=== PATIENT | female | born 2000 ===

== ENCOUNTER 2020-07-08 10:39 | Emergency (ER) | payer SELFPAY ==
[~2020-07-08] VITALS: Ht 172.7 cm; Wt 58.3 kg
[2020-07-08 10:44] VITALS: BP 107/77
--- NOTE | 2020-07-08 13:59 | NUR ---
GIN RN: CALLED PT IN LOBBY TO REVITAL, EXPLAINED WAIT, PT STATES SHE WANT TO LEAVE, AMA PAPER SIGNED
== END 2020-07-08 14:14 | disposition left against medical advice (07) ==
LOC: EDBD 10:39 → ED 13:00
DX: M79.604 Pain in right leg (principal); Z53.21 Procedure and treatment not carried out due to patient leaving prior to being seen by health care provider